=== PATIENT | male | born 1965 | race Hispanic/Latino ===

== ENCOUNTER 2017-10-28 06:11 | Day surgery (SDC) | payer BC ==
[2017-10-17 10:24] VITALS: BMI 23.7
[2017-10-28] MEDS ORDERED: Midazolam 2 MG/2 ML VIAL ONE (07:24)
[2017-10-28] MEDS ORDERED: Propofol 10 mg/ml Inj (20 ML) ONE (07:24)
[2017-10-28 07:26] LABS: INR 0.93 (0.93-1.08); PARTIAL THROMBOPLASTIN TIME 32.6 Seconds (25.1-36.5); PROTHROMBIN TIME 10.7 SECONDS (9.4-12.5)
[2017-10-28] MEDS ORDERED: Lidocaine 1% Inj (20ml) ONE (07:35)
[2017-10-28] MEDS ORDERED: CeFAZolin 1 gm in NS 100ml IVPB ONE (07:51)
[2017-10-28] MEDS ORDERED: Lidocaine 1% Inj (20ml) INFIL ONE (07:52)
[2017-10-28] MEDS ORDERED: Dexamethasone 4 mg/1 ml ONE (08:30)
[2017-10-28] MEDS ORDERED: Lactated Ringer's 1,000 ML IV SCH (08:45)
[2017-10-28] MEDS ORDERED: Oxycodone/Acetaminophen 5/325 mg Tab PO PRN ×2 (08:46)
--- NOTE | 2017-10-28 08:54 | PCM.SURG1 ---
Surgeon's Initial Post Op Note - Surgeon's Notes Surgeon: Dr. Luis Alberto Agustin DPM Railway Signal Technician: Dr. William Albarado DPM PGY-1 Type of Anesthesia: IV Sedation, Local Anesthesia Administered By: Dr. Les ARANA Pre-Operative Diagnosis: Left foot tarso-metatarsal exostosis/ganglion cyst Operative Findings: See dictation. M: 3-0 vicryl (Capsule closure, Subcuteneous closure), 4-0 Biosyn (Subcuticular closure). I: 20 cc of 1:1 1% lidocaine plain:0.5% marcaine plain - pre-op; (1 cc of dexamethasone, 6 cc of 0.5% marcaine plain - post-op) Post-Operative Diagnosis: Left foot tarso-metatarsal exostosis/ganglion cyst Operation Performed: Left foot tarso-metatarsal exostectomy/ganglionectomy Specimen/Specimens Removed: Bone; Ganglion cyst Estimated Blood Loss: EBL {In ML}: 1 Blood Products Given: N/A Drains Used: No Drains Post-Op Condition: Good Date of Surgery/Procedure: 10/28/17 Time of Surgery/Procedure: 08:57
[2017-10-28 09:40] VITALS: RESP 16; TEMP 97.5; O2SAT 99
[2017-10-28 10:50] VITALS: BP 110/69; PULSE 59
--- NOTE | 2017-10-28 14:47 | RAD ---
PROCEDURE: Left Foot Radiographs. HISTORY: s/p left foot surgery COMPARISON: None. FINDINGS: BONES: Bone alignment and mineralization are normal. There is no acute displaced fracture or bone destruction. JOINTS: Normal. SOFT TISSUES: There is mild dorsal soft tissue swelling and subcutaneous edema. OTHER FINDINGS: None. IMPRESSION: No acute fracture or dislocation. Mild dorsal soft tissue swelling and subcutaneous edema.
--- NOTE | 2017-10-30 16:16 | OP ---
PROCEDURE DATE: 10/28/2017 SURGEON: Luis Alberto Agustin DPM. INGOT HEADER: William Albarado DPM, PGY-1. ANESTHESIOLOGIST: Dr. Saldana. TYPE OF ANESTHESIA: IV sedation with local. PREOPERATIVE DIAGNOSIS: Left foot tarsometatarsal exostosis/ganglion cyst. POSTOPERATIVE DIAGNOSIS: Left foot tarsometatarsal exostosis/ganglion cyst. NAME OF THE PROCEDURE: Left foot tarsometatarsal exostectomy/ganglionectomy. INDICATIONS: The patient is a 52-year-old male with the above diagnosis. The patient has exhausted all conservative treatment at this time and now requires surgical intervention. The patient signed the consent after careful explanation of risks, benefits, complications, and alternatives for surgical procedure. No guarantees were given nor implied. PREPARATION: The patient was brought into the Operating Room and placed on the operating room table in supine position. Time-out was performed for the identification of the correct patient and the procedure. The patient received a total of 20 mL of 1:1 mixture of 0.5% Marcaine plain and 1% lidocaine plain in a local block type fashion to the left medial midfoot. Once local anesthesia was achieved, the left foot was then prepped and draped in normal sterile manner. The pneumatic ankle tourniquet was applied following sterile technique. DESCRIPTION OF PROCEDURE: Attention was directed to the dorsal medial exostosis at the level of the first metatarsal medial cuneiform joint. Approximately 4 cm long longitudinal incision was made parallel and medial to the extensor hallucis longus tendon. Incision was deepened through the subcutaneous tissue using sharp and blunt dissection. Care was taken to identify and retract all vital neurovascular structures as well as the extensor hallucis longus tendon. At this point, linear incision was made over the periosteum and the joint capsule directly dorsal to the exostosis using a [place] blade. Ganglion cyst fluid was executed from the joint level at this time. The periosteum was carefully retracted and the exostosis was visualized in the surgical field. At this time, using a mallet and a small osteotome, the exostosis was removed and was sent to Pathology. Soft tissue surrounding the exostosis was also removed from the site and was sent to Pathology. At this time, a bone rasp was utilized to smoothen out all the rough edges. The surgical site was now irrigated with copious amount of saline. At this time, joint capsule and subcutaneous was reapproximate using 3-0 Vicryl. Skin closure was performed using subcuticular stitch technique using 4-0 Biosyn. Mastisol was applied surrounding the surgical site and Steri-Strips were applied. A 1 mL of dexamethasone and 6 mL of Marcaine plain was injected in the surgical site at this time. Surgical site was then dressed using Betadine-soaked Adaptic, 4x4, Kerlix and BLAYNE bandage. POSTOPERATIVE CONDITION: The patient tolerated the anesthesia and the procedure well and was escorted to the Recovery Room with the vital signs stable and neurovascular status intact to the left foot. The patient will remain full weight bearing to lower extremity using surgical shoe. The patient will follow up with Dr. Luis Alberto Agustin in his office this week. William Albarado DPM Luis Alberto Agustin DPM DASHAWN
== END 2017-10-28 10:40 | disposition home or self-care (01) ==
LOC: SDS 06:11
PROVIDERS: ATTEND Podiatrist
DX: M89.9 Disorder of bone, unspecified (principal); M67.472 Ganglion, left ankle and foot
CPT/HCPCS: 28104; 36415; 73630; 85610; 85730; 88304; 88311; J0690; J1100; J2250; J2704; J3010; J7120 ×2